=== PATIENT | female | born 1960 | race African-American/Black ===

== ENCOUNTER → 2017-01-21 | Outpatient (CLI) | payer BC ==
--- NOTE | 2017-01-30 14:01 | DI ---
Indication: ITS.REASON: K46.9 Unspecified abdominal hernia without obstruction or gangren PROCEDURE: US PELVIC NON OB W/TRANS VAG: Encounter: Initial Comparison: None FINDINGS: Transvaginal and transabdominal pelvic imaging was performed. The uterus measures 6.1 x 3.6 x 4.5 cm. The parenchyma is homogeneous without fibroids. The endometrial stripe measures 4 mm in thickness. There is no evidence of focal endometrial mass. Both ovaries are identified and normal in appearance. The right ovary measures 2.4 x 1 x 1.3 cm. The left ovary measures 1.9 x 1 x 1.2 cm. There are no abnormal adnexal masses detected. No free fluid. IMPRESSION: Normal pelvic sonogram. .
== END ==
LOC: IMA 13:14
PROVIDERS: ATTEND Family Medicine
DX: K46.9 Unspecified abdominal hernia without obstruction or gangrene (principal); R10.2 Pelvic and perineal pain